=== PATIENT | male | born 1960 | race Caucasian/White ===

== ENCOUNTER 2021-06-06 15:35 | Inpatient (IN) ==
[2021-06-06] MEDS ORDERED: MIDAZOLAM 2 MG/2 ML VIAL ONE (15:46)
[2021-06-06] MEDS ORDERED: fentaNYL 100 MCG/2 ML VIAL ONE (15:46)
[2021-06-06] MEDS ORDERED: HEPARIN 5,000 UNIT/1 ML VIAL ONE (16:00)
[2021-06-06] MEDS ORDERED: ACETAMINOPHEN 325 MG TABLET PO PRN (16:05)
[2021-06-06] MEDS ORDERED: ZALEPLON 5 MG CAPSULE PO PRN (16:05)
[2021-06-06] MEDS ORDERED: ONDANSETRON 4 MG/2 ML VIAL IV PRN (16:05)
[2021-06-06] MEDS ORDERED: ALUMINUM/MAGNES/SIMETH MAX STR 30 ML UDCUP PO PRN (16:05)
[2021-06-06] MEDS ORDERED: diphenhydrAMINE CAP 25 MG CAPSULE PO PRN (16:05)
[2021-06-06 17:31] LABS: Basophils # 0.1 10*3/uL (0.0-0.2); Basophils % 0.7 % (0.0-0.8); Eosinophils # 0.2 10*3/uL (0.0-0.87); Eosinophils % 1.2 % (0.00-10.9); Hematocrit 42.8 VOL% (42.0-52.0); Hemoglobin 14.4 GM/DL (14.0-18.0); Immature Granulocytes % 0.3 %; Immature Granulocytes Absolute 0.04 #; Lymphocytes % 15.2 % (21.2-54.2); Mean Corpuscular HGB Conc 33.6 GM/DL (32-36); Mean Corpuscular Volume 93.4 FL (87-102); Monocytes % 4.9 % (1.7-12.7); Neutrophils % 77.7 % (38.7-73.9); Platelet Count 212 T/CUMM (130-400); Red Blood Count 4.58 MC/CUMM (3.8-5.5); Red Cell Distribution Width 13.4 % (9.3-17.3)
[2021-06-06 17:48] LABS: Albumin 3.8 G/DL (3.4-5.0); Bilirubin,Total 0.5 MG/DL (0.20-1.00); Calcium 8.9 MG/DL (8.5-10.1); Osmolality,Calculated 273.2 MOS/KG (273-304); Potassium 4.1 MMOL/L (3.5-5.1); Total Protein 7.6 G/DL (6.4-8.2)
[2021-06-06] MEDS ORDERED: buPROPion 75 MG TABLET PO SCH (17:58)
[2021-06-06] MEDS: buPROPion 75 MG TABLET PO SCH (18:35)
[2021-06-06] MEDS: carvediloL 3.125 MG TABLET PO SCH (21:23)
[2021-06-06] MEDS: ROSUVASTATIN 20 MG TABLET PO SCH (21:23)
[2021-06-07 04:10] LABS: Basophils # 0.1 10*3/uL (0.0-0.2); Basophils % 0.9 % (0.0-0.8); Eosinophils # 0.3 10*3/uL (0.0-0.87); Eosinophils % 2.4 % (0.00-10.9); Hematocrit 40.5 VOL% (42.0-52.0); Hemoglobin 13.6 GM/DL (14.0-18.0); Immature Granulocytes % 0.4 %; Immature Granulocytes Absolute 0.04 #; Lymphocytes # 1.8 10*3/uL (1.4-4.0); Lymphocytes % 16.3 % (21.2-54.2); Mean Corpuscular HGB Conc 33.6 GM/DL (32-36); Mean Corpuscular Volume 93.3 FL (87-102); Mean Platelet Volume 10.3 FL (9.6-12.0); Monocytes % 6.8 % (1.7-12.7); Neutrophils % 73.2 % (38.7-73.9); Platelet Count 221 T/CUMM (130-400); Red Blood Count 4.34 MC/CUMM (3.8-5.5); Red Cell Distribution Width 13.4 % (9.3-17.3); White Blood Count 11.3 T/CUMM (4-12)
[2021-06-07 04:33] LABS: Calcium 8.6 MG/DL (8.5-10.1); Osmolality,Calculated 281.7 MOS/KG (273-304); Potassium 3.8 MMOL/L (3.5-5.1)
[2021-06-07] MEDS: PANTOPRAZOLE 40 MG TABLET PO SCH (08:43)
[2021-06-07] MEDS: ASPIRIN EC 81 MG TABLET PO SCH (08:44)
[2021-06-07] MEDS: buPROPion 75 MG TABLET PO SCH ×2 (08:44→17:34)
[2021-06-07] MEDS: SODIUM CHLORIDE 0.9% 1,000 ML IV SCH ×3 (08:45→23:02)
[2021-06-07] MEDS ORDERED: LORazepam 2 MG/1 ML VIAL IV PRN (09:02)
[2021-06-07] MEDS ORDERED: NITROGLYCERIN SL 0.4 MG TABLET SL PRN (09:43)
[2021-06-07] MEDS: FOLIC ACID 1 MG TABLET PO SCH (10:04)
[2021-06-07] MEDS: CLOPIDOGREL 75 MG TABLET PO SCH (15:22)
[2021-06-07] MEDS: ROSUVASTATIN 20 MG TABLET PO SCH (21:24)
[2021-06-07] MEDS: carvediloL 3.125 MG TABLET PO SCH (21:24)
[2021-06-07] MEDS: DOCUSATE SODIUM 100 MG CAPSULE PO PRN (21:24)
[2021-06-08] MEDS: SODIUM CHLORIDE 0.9% 1,000 ML IV SCH (04:32)
[2021-06-08 05:10] LABS: Basophils # 0.1 10*3/uL (0.0-0.2); Basophils % 0.9 % (0.0-0.8); Eosinophils # 0.3 10*3/uL (0.0-0.87); Hematocrit 37.6 VOL% (42.0-52.0); Hemoglobin 12.2 GM/DL (14.0-18.0); Immature Granulocytes % 0.2 %; Immature Granulocytes Absolute 0.02 #; Lymphocytes # 2.1 10*3/uL (1.4-4.0); Lymphocytes % 21.7 % (21.2-54.2); Mean Corpuscular HGB Conc 32.4 GM/DL (32-36); Mean Corpuscular Volume 96.7 FL (87-102); Mean Platelet Volume 10.6 FL (9.6-12.0); Monocytes % 7.2 % (1.7-12.7); Platelet Count 192 T/CUMM (130-400); Red Blood Count 3.89 MC/CUMM (3.8-5.5); Red Cell Distribution Width 13.7 % (9.3-17.3); White Blood Count 9.6 T/CUMM (4-12)
[2021-06-08 05:45] LABS: Osmolality,Calculated 285.3 MOS/KG (273-304)
[2021-06-08 05:49] LABS: Risk Ratio 3.82; VLDL Cholesterol 15.4 MG/DL
[2021-06-08] MEDS: buPROPion 75 MG TABLET PO SCH ×2 (08:16→17:47)
[2021-06-08] MEDS: carvediloL 3.125 MG TABLET PO SCH ×2 (08:16→20:15)
[2021-06-08] MEDS: ASPIRIN EC 81 MG TABLET PO SCH (08:16)
[2021-06-08] MEDS: FOLIC ACID 1 MG TABLET PO SCH (08:16)
[2021-06-08] MEDS: CLOPIDOGREL 75 MG TABLET PO SCH (08:17)
[2021-06-08] MEDS: PANTOPRAZOLE 40 MG TABLET PO SCH (08:17)
[2021-06-08] MEDS: DOCUSATE SODIUM 100 MG CAPSULE PO PRN (08:17)
[2021-06-08] MEDS ORDERED: chlordiazePOXIDE 25 MG CAPSULE PO SCH (09:00)
[2021-06-08] MEDS: CLORAZEPATE 3.75 MG TABLET PO SCH ×2 (15:30→20:15)
[2021-06-08] MEDS: ROSUVASTATIN 20 MG TABLET PO SCH (20:15)
[2021-06-09 05:03] LABS: Hematocrit 36.4 VOL% (42.0-52.0); Hemoglobin 11.8 GM/DL (14.0-18.0); Mean Corpuscular HGB Conc 32.4 GM/DL (32-36); Mean Corpuscular Volume 96.8 FL (87-102); Mean Platelet Volume 10.5 FL (9.6-12.0); Platelet Count 179 T/CUMM (130-400); Red Blood Count 3.76 MC/CUMM (3.8-5.5); Red Cell Distribution Width 13.6 % (9.3-17.3); White Blood Count 9.4 T/CUMM (4-12)
[2021-06-09 05:04] LABS: Basophils # 0.1 10*3/uL (0.0-0.2); Basophils % 1.1 % (0.0-0.8); Eosinophils # 0.4 10*3/uL (0.0-0.87); Eosinophils % 3.8 % (0.00-10.9); Immature Granulocytes % 0.3 %; Immature Granulocytes Absolute 0.03 #; Lymphocytes % 21.3 % (21.2-54.2); Monocytes % 8.5 % (1.7-12.7)
[2021-06-09 05:29] LABS: Calcium 8.3 MG/DL (8.5-10.1); Osmolality,Calculated 282.4 MOS/KG (273-304); Potassium 3.9 MMOL/L (3.5-5.1)
[2021-06-09] MEDS: FOLIC ACID 1 MG TABLET PO SCH (09:53)
[2021-06-09] MEDS: carvediloL 3.125 MG TABLET PO SCH (09:53)
[2021-06-09] MEDS: CLOPIDOGREL 75 MG TABLET PO SCH (09:53)
[2021-06-09] MEDS: ASPIRIN EC 81 MG TABLET PO SCH (09:53)
[2021-06-09] MEDS: PANTOPRAZOLE 40 MG TABLET PO SCH (09:53)
[2021-06-09] MEDS: CLORAZEPATE 3.75 MG TABLET PO SCH (09:54)
[2021-06-09] MEDS: buPROPion 75 MG TABLET PO SCH (09:56)
[2021-06-09 11:48] VITALS: BP 120/69
== END 2021-06-09 16:14 | disposition home or self-care (01) | DRG 281 ==
LOC: N.CVR → N.ICU 16:35 → N.TELES 06-08 13:15
PROVIDERS: ADMIT Internal Medicine Cardiovascular Disease; ATTEND Internal Medicine Cardiovascular Disease
PROC: CLCCHCL (ICD-10-PCS; 2021-06-06 16:15)